=== PATIENT | female | born 1980 | race Caucasian/White ===

== ENCOUNTER → 2017-01-19 | Outpatient (CLI) | payer MEDICAID | END | disposition home or self-care (01) | LOC: PTH.S 01-12 16:00 | DX: R76.0 Raised antibody titer (principal); Z33.1 Pregnant state, incidental; E55.9 Vitamin D deficiency, unspecified; Z79.899 Other long term (current) drug therapy ==

== ENCOUNTER → 2017-03-04 | Outpatient (CLI) | payer MEDICAID | END | disposition home or self-care (01) | LOC: PTH.S 02-23 10:30 | DX: R76.0 Raised antibody titer (principal); Z33.1 Pregnant state, incidental; Z79.899 Other long term (current) drug therapy ==